=== PATIENT | male | born 1995 | race Caucasian/White ===

== ENCOUNTER 2021-04-09 21:24 | Emergency (ER) | payer OTHER ==
[~2021-04-09] VITALS: Ht 182.9 cm; Wt 100.0 kg
[2021-04-09 23:10] VITALS: BP 132/86
[2021-04-10] MEDS ORDERED: ZITHROMAX250 MG PO (00:47)
[2021-04-10] MEDS ORDERED: FLONASE AL50 MCG/ACT (00:47)
== END 2021-04-10 01:09 | disposition home or self-care (01) ==
LOC: ED 21:24
DX: U07.1 COVID-19 (principal); J32.9 Chronic sinusitis, unspecified

== ENCOUNTER 2022-05-15 20:04 | Emergency (ER) | payer BC, OTHER ==
[~2022-05-15] VITALS: Ht 182.9 cm; Wt 99.7 kg
[~2022-05-15 20:04] MED LIST: FLONASE AL50 MCG/ACT; ZITHROMAX250 MG PO
[2022-05-15 20:12] VITALS: BP 138/91
[2022-05-15 20:55] VITALS: BP 123/79
[2022-05-15 21:00] VITALS: BP 124/84
[2022-05-15] MEDS ORDERED: KEFLEX500 MG PO (21:04)
[2022-05-15] MEDS ORDERED: NAPROXEN500 MG PO (21:04)
[2022-05-15 21:15] VITALS: BP 125/86
[2022-05-15 21:30] VITALS: BP 128/89
== END 2022-05-15 21:36 | disposition home or self-care (01) | DRG 607 ==
LOC: ED 20:04
DX: L73.9 Follicular disorder, unspecified (principal)

== ENCOUNTER 2022-07-18 19:20 | Emergency (ER) | payer OTHER ==
[2022-07-18] VITALS (8 sets, daily range): BP systolic 116–143; BP diastolic 71–92
[~2022-07-18] VITALS: Ht 182.9 cm; Wt 98.0 kg
[~2022-07-18 19:20] MED LIST changes: +KEFLEX500 MG PO; +NAPROXEN500 MG PO
[2022-07-18] MEDS ORDERED: GABAPENTIN100 MG PO (19:38)
[2022-07-18 20:17] LABS: BASO% 0.7 % (0-3); EOS% 0.2 % (0-8); HEMATOCRIT 41.1 % (39.0-50.0); HEMOGLOBIN 14.1 g/dl (14.0-18.0); IMMATURE GRANULOCYTES 0.2 % (0.0-5.0); LYMPH% 16.5 % (15-41); MEAN CELL VOLUME 83.4 fL CALC (80.0-100.0); MEAN CORPUSCULAR HGB 28.6 pG CALC (26.0-32.0); MEAN CORPUSCULAR HGB CONC 34.3 g/dL CAL (32.0-36.0); MONO% 18.7 % (2-13); NEUT# 2.62 thou/uL (1.82-7.42); NEUT% 63.7 % (42-76); RED BLOOD COUNT 4.93 mill/uL (4.70-6.10); RED CELL DISTRI WIDTH 13.3 % (11.5-15.5)
[2022-07-18 20:29] LABS: ALBUMIN 4.7 g/dL (3.2-5.0); ALKALINE PHOSPHATASE 56 u/l (38-126); ANION GAP 15 (6-22 (CALC)); BILIRUBIN, TOTAL 0.5 mg/dL (0.2-1.3); BUN 12 mg/dL (9-20); BUN/CREATININE RATIO 11 (12-20 (CALC)); CARBON DIOXIDE 23 mmol/l (22-30); CHLORIDE 104 mmol/l (95-108); GFR FOR AFR.AMER. > 60 ML/MIN (>=60 (CALC)); GFR OTHER RACES > 60 ML/MIN (>=60 (CALC)); POTASSIUM 3.7 mmol/l (3.5-5.1); SGOT/AST 31 u/l (17-59); SODIUM 138 mmol/l (137-146); TOTAL PROTEIN 7.9 g/dL (6.3-8.2)
[2022-07-18] MEDS ORDERED: PROMETHAZINE HY25 M1 PO ×2 (20:55→21:10)
== END 2022-07-18 21:15 | disposition home or self-care (01) ==
LOC: ED 19:20
PROVIDERS: Family Medicine
DX: U07.1 COVID-19 (principal); R05.9 Cough, unspecified; R50.9 Fever, unspecified; R52 Pain, unspecified; R11.10 Vomiting, unspecified; F17.200 Nicotine dependence, unspecified, uncomplicated

== ENCOUNTER 2022-08-06 00:15 | Emergency (ER) | payer BC, OTHER ==
[~2022-08-06] VITALS: Ht 182.9 cm; Wt 99.7 kg
[~2022-08-06 00:15] MED LIST changes: +GABAPENTIN100 MG PO; +PROMETHAZINE HY25 M1 PO
[2022-08-06 00:23] VITALS: BP 140/106
[2022-08-06 00:30] VITALS: BP 128/96
[2022-08-06 00:45] VITALS: BP 138/95
[2022-08-06 00:46] LABS: URINE BILIRUBIN - DIPSTICK NEGATIVE (NEGATIVE); URINE BLOOD DIPSTICK MODERATE (NEGATIVE); URINE COLOR YELLOW; URINE GLUCOSE - DIPSTICK NEGATIVE (NEGATIVE); URINE KETONE NEGATIVE (NEGATIVE); URINE LEUK ESTERASE TRACE (NEGATIVE); URINE PROTEIN - DIPSTICK 100 mg/dL (NEG-TRACE); URINE UROBILINOGEN - DIPSTICK >=8.0 E.U./dL (0.2)
[2022-08-06 00:50] LABS: URINE NITRITE - DIPSTICK NEGATIVE (Negative)
[2022-08-06 00:54] LABS: URINE BACTERIA MODERATE hpf; URINE RBC 25-50 RBC/hpf (0-5); URINE WBC 0-2 WBC/hpf (0-5)
[2022-08-06 01:00] VITALS: BP 122/96
[2022-08-06] MEDS ORDERED: BACTRIM DS1 TAB PO (01:02)
[2022-08-06 01:15] VITALS: BP 144/98
[2022-08-06 01:18] VITALS: BP 144/98
== END 2022-08-06 01:18 | disposition home or self-care (01) | DRG 690 ==
LOC: ED 00:15
PROVIDERS: Family Medicine
DX: N39.0 Urinary tract infection, site not specified (principal); B96.20 Unspecified Escherichia coli [E. coli] as the cause of diseases classified elsewhere